=== PATIENT | female | born 2005 | race Caucasian/White ===

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

== ENCOUNTER → 2024-03-30 | Outpatient (CLI) | payer BC ==
[2024-03-30 17:57] LABS: FREE T4 1.03 NG/DL (0.83-1.43)
[2024-03-30 17:58] LABS: THYROID STIMULATING HORMONE 0.856 uIU/ML (0.48-4.17)
== END ==
LOC: M LAB 16:22
PROVIDERS: ATTEND Nurse Practitioner Family
DX: E03.1 Congenital hypothyroidism without goiter (principal)

== ENCOUNTER → 2024-09-02 | Outpatient (REF) | payer BC, MEDICAID | LOC: M LAB REF 15:18 | PROVIDERS: ATTEND Nurse Practitioner Adult Health | DX: R30.0 Dysuria (principal) ==

== ENCOUNTER → 2024-09-29 | Outpatient (CLI) | payer BC, MEDICAID ==
[2024-09-29 14:46] LABS: FREE T4 1.46 NG/DL (0.83-1.43); THYROID STIMULATING HORMONE 0.668 uIU/ML (0.48-4.17)
== END ==
LOC: M LAB 13:12
PROVIDERS: ATTEND Nurse Practitioner Family
DX: E03.1 Congenital hypothyroidism without goiter (principal)

== ENCOUNTER → 2025-03-22 | Outpatient (CLI) | payer MEDICAID ==
[2025-03-22 14:45] LABS: FREE T4 1.51 NG/DL (0.89-1.76)
== END ==
LOC: M LAB 13:23
PROVIDERS: ATTEND Nurse Practitioner Adult Health
DX: E03.1 Congenital hypothyroidism without goiter (principal)

== ENCOUNTER → 2025-04-06 | Outpatient (CLI) | payer MEDICAID ==
[2025-04-06 13:56] LABS: FREE T4 1.27 NG/DL (0.89-1.76)
== END ==
LOC: M LAB 12:23
PROVIDERS: ATTEND Nurse Practitioner Adult Health
DX: E03.1 Congenital hypothyroidism without goiter (principal)

== ENCOUNTER → 2025-05-22 | Outpatient (REF) | LOC: M EMP 10:10 | PROVIDERS: ATTEND Family Medicine | DX: Z01.89 Encounter for other specified special examinations (principal) ==